=== PATIENT | female | born 2000 | race Two or more races ===

== ENCOUNTER → 2024-12-16 | Outpatient (CLI) | payer OTHER, SELFPAY ==
--- NOTE | 2024-12-16 15:54 | XR_ITS ---
Examination: Mandible series 5 views TECHNIQUE: Lyudmila lateral, right and left sagittal oblique, Linda mandible series 5 views Date and time: December 16, 2024 1604 hours INDICATIONS: Right-sided jaw pain beginning one year ago. FINDINGS: No mandibular fracture No significant arthritic change involving temporomandibular joints Remaining facial bones intact IMPRESSION: No fracture or significant arthritic change Consider MRI temporomandibular joints follow up to assess for displaced meniscus within the right temporomandibular joint
[2024-12-16 18:06] LABS: Syphilis Nonreactive (Nonreactive)
[2024-12-16 18:28] LABS: HIV (1&2) Antibody Rapid Non-Reactive
[2024-12-16 18:30] LABS: Hepatitis C Antibody Non Reactive (Non React)
[2024-12-17 09:55] LABS: Chlamydia trachomatis PCR Negative (Not Detect); Neisseria Gonorrhoeae DNA PCR Negative (Not Detect); Trichomonas Negative (Negative)
== END | disposition home or self-care (01) ==
LOC: CDIM 16:02 → COPL 16:13
PROVIDERS: PCP Family Medicine; Referring Provider Physician Assistant; Visit Provider Radiology Diagnostic Radiology
DX: M26.629 Arthralgia of temporomandibular joint, unspecified side (principal); Z11.3 Encounter for screening for infections with a predominantly sexual mode of transmission
CPT/HCPCS: 36415; 70110; 86703; 86780; 86803; 87491; 87591; 87661